=== PATIENT | male | born 1970 | race Caucasian/White ===

== ENCOUNTER 2016-12-10 17:53 | Emergency (ER) | payer OTHER ==
[~2016-12-10] VITALS: Ht 177.8 cm; Wt 70.0 kg
[~2016-12-10 17:53] MED LIST: BUSP5 PO; RISP1 PO; RISP1TAB2 PO; TRAZ100 PO
--- NOTE | 2016-12-10 18:41 | PD ---
HPI Chief Complaint: Perez act Time Seen by Provider: 18:30 Travel History International Travel<30 days: No Contact w/Intl Traveler<30days: No Traveled to known affect area: No History of Present Illness HPI 46-year-old male with history of bipolar disorder, depression, brought in by PD under Perez act for homicidal ideation. According to the Perez act, the patient 's sister reported to PD that he made statements that he wished to kill his boss. When questioned about this, the patient reports that they were out drinking last night. He made statements this morning. Patient admits to drinking about 4 or 5 beers today, and smoking crack yesterday. He denies any other illicit drugs. He denies physical complaints. No suicidal ideation. PFSH Past Medical History Bipolar Disorder: Yes Anxiety: Yes Depression: Yes COPD: Yes Diminished Hearing: No GERD: Yes Hepatitis: Yes (HEP C) Inguinal Hernia: Yes (BILATERAL) Insomnia: Yes Neurologic: Yes (BRAIN INJURY: 1995) Psychiatric: Yes (PTSD) Respiratory: Yes Pneumonia: Yes Past Surgical History Tonsillectomy: Yes Social History Alcohol Use: Yes (3-4 BEERS, DAILY) Tobacco Use: Yes (1 PPD) Substance Use: Yes Allergies-Medications (Allergen,Severity, Reaction): Coded Allergies: No Known Allergies (Unverified , 12/22/15) Reported Meds & Prescriptions Reported Meds & Active Scripts Active Buspar 5 Mg Tab (Buspirone HCl) 5 Mg Tab 5 Mg PO TID 14 Days Trazodone Hcl (Trazodone HCl) 100 Mg Tab 100 Mg PO HS 14 Days Risperdal (Risperidone) 1 Mg Tab 1 Mg PO BID 14 Days Reported Trazodone Hcl (Trazodone HCl) 100 Mg Tab 100 Mg PO HS Risperidone 1 Mg Tab 1 Mg PO BID Buspar 5 Mg Tab (Buspirone HCl) 5 Mg Tab 5 Mg PO TID Review of Systems Except as stated in HPI: all other systems reviewed are Neg Physical Exam Narrative GENERAL: Well-developed, well-nourished, awake, alert, no apparent distress. SKIN: Focused skin assessment warm/dry. No rash. HEAD: Atraumatic. Normocephalic. EYES: Pupils equal and round. No scleral icterus. No injection or drainage. ENT: No nasal bleeding or discharge. Poor dentition. NECK: Trachea midline. No JVD. CARDIOVASCULAR: Regular rate and rhythm. RESPIRATORY: No accessory muscle use. Clear to auscultation. Breath sounds equal bilaterally. GASTROINTESTINAL: Abdomen soft, non-tender, nondistended. MUSCULOSKELETAL: No obvious deformities. No clubbing. No cyanosis. No edema. NEUROLOGICAL: Awake and alert. No obvious cranial nerve deficits. Motor grossly within normal limits. Normal speech. PSYCHIATRIC: Appears angry/agitated when talking about his boss. Data Data Last Documented VS Vital Signs Date Time Temp Pulse Resp B/P Pulse Ox O2 Delivery O2 Flow Rate FiO2 12/11/16 11:38 59 17 128/58 97 Room Air 12/10/16 18:59 98.0 Orders Complete Blood Count With Diff (12/10/16 18:38) Comprehensive Metabolic Panel (12/10/16 18:38) Psych Screen (12/10/16 18:38) [place] (Li) (12/10/16 18:38) Drug Screen, Random Urine (12/10/16 18:38) Alcohol (Ethanol) (12/10/16 18:38) Salicylates (Aspirin) (12/10/16 18:38) Tylenol (Acetaminophen) (12/10/16 18:38) Diet Regular Basic (12/11/16 Breakfast) Labs Laboratory Tests Test 12/10/16 12/10/16 18:45 18:50 Urine Opiates Screen NEG Urine Barbiturates Screen NEG Urine Amphetamines Screen NEG Urine Benzodiazepines Screen NEG Urine Cocaine Screen POS Urine Cannabinoids Screen NEG White Blood Count 10.5 TH/MM3 Red Blood Count 5.29 MIL/MM3 Hemoglobin 16.8 GM/DL Hematocrit 48.0 % Mean Corpuscular Volume 90.7 FL Mean Corpuscular Hemoglobin 31.8 PG Mean Corpuscular Hemoglobin 35.0 % Concent Red Cell Distribution Width 12.8 % Platelet Count 264 TH/MM3 Mean Platelet Volume 7.7 FL Neutrophils (%) (Auto) 55.9 % Lymphocytes (%) (Auto) 31.5 % Monocytes (%) (Auto) 7.9 % Eosinophils (%) (Auto) 3.9 % Basophils (%) (Auto) 0.8 % Neutrophils # (Auto) 5.8 TH/MM3 Lymphocytes # (Auto) 3.3 TH/MM3 Monocytes # (Auto) 0.8 TH/MM3 Eosinophils # (Auto) 0.4 TH/MM3 Basophils # (Auto) 0.1 TH/MM3 CBC Comment DIFF FINAL Differential Comment Sodium Level 140 MEQ/L Potassium Level 3.7 MEQ/L Chloride Level 109 MEQ/L Carbon Dioxide Level 22.9 MEQ/L Anion Gap 8 MEQ/L Blood Urea Nitrogen 10 MG/DL Creatinine 0.94 MG/DL Estimat Glomerular Filtration 86 ML/MIN Rate Random Glucose 80 MG/DL Calcium Level 8.8 MG/DL Total Bilirubin 0.4 MG/DL Aspartate Amino Transf 62 U/L (AST/SGOT) Alanine Aminotransferase 71 U/L (ALT/SGPT) Alkaline Phosphatase 58 U/L Total Protein 7.9 GM/DL Albumin 4.0 GM/DL Salicylates Level 2.8 MG/DL Acetaminophen Level LESS THAN 2.0 MCG/ML [place] Level LESS THAN 0.1 MEQ/L Ethyl Alcohol Level 170 MG/DL [facility] Medical Decision Making Medical Screen Exam Complete: Yes Emergency Medical Condition: Yes Differential Diagnosis Homicidal ideation, bipolar disorder, aggressive behavior Narrative Course Vitals and labs reviewed. He is medically cleared for psych eval and dispo. Peter Mckeon MD Dec 10, 2016 18:41
[2016-12-10 18:59] VITALS: BP 104/61; PULSE 77; RESP 16; TEMP 98; O2SAT 99
[2016-12-10 20:07] LABS: AUTOMATED NEUTROPHIL # 5.8 TH/MM3 (1.8-7.7); BASOPHIL # 0.1 TH/MM3 (0-0.2); BASOPHIL % 0.8 % (0.0-2.0); EOSINOPHIL # 0.4 TH/MM3 (0-0.4); EOSINOPHIL % 3.9 % (0.0-4.0); HEMO FLAGS DIFF FINAL; LYMPH % 31.5 % (9.0-44.0); LYMPHOCYTE # 3.3 TH/MM3 (1.0-4.8); MEAN CELL VOLUME 90.7 FL (80.0-100.0); MEAN CORPUSCULAR HEMOGLOBIN 31.8 PG (27.0-34.0); MONO % 7.9 % (0.0-8.0); NEUT % 55.9 % (16.0-70.0); PLATELET COUNT 264 TH/MM3 (150-450); RED BLOOD COUNT 5.29 MIL/MM3 (4.50-5.90); RED CELL DISTRIBUTION WIDTH 12.8 % (11.6-17.2); WHITE BLOOD COUNT 10.5 TH/MM3 (4.0-11.0)
[2016-12-10 20:10] LABS: AMPHETAMINE, URINE NEG (NEG); BARBITURATES, URINE NEG (NEG); COCAINE, URINE POS (NEG)
[2016-12-10 20:23] LABS: ANION GAP 8 MEQ/L (5-15); AST (GOT) 62 U/L (15-37); BICARBONATE 22.9 MEQ/L (21.0-32.0); BLOOD UREA NITROGEN 10 MG/DL (7-18); CHLORIDE 109 MEQ/L (98-107); GLOMERULAR FILTRATION RATE 86 ML/MIN (>89); POTASSIUM 3.7 MEQ/L (3.5-5.1); SODIUM (NA) 140 MEQ/L (136-145)
[2016-12-10 20:25] LABS: ALT (GPT) 71 U/L (12-78)
[2016-12-10 20:27] LABS: ALKALINE PHOSPHATASE 58 U/L (45-117); TOTAL BILIRUBIN ADULT 0.4 MG/DL (0.2-1.0)
[2016-12-10 20:29] LABS: ACETAMINOPHEN LESS THAN 2.0 MCG/ML (10.0-30.0)
[2016-12-10 21:29] VITALS: BP 103/62; PULSE 103; RESP 18; O2SAT 98
[2016-12-11 02:28] VITALS: BP 107/61; PULSE 84; RESP 18; O2SAT 96
[2016-12-11 06:06] VITALS: BP 128/58; PULSE 59; RESP 17; O2SAT 97
--- NOTE | 2016-12-11 11:26 | PD ---
History of Present Illness Chief Complaint: Psychiatric Symptoms Time Seen by Provider: 11:05 Travel History International Travel<30 Days: No Contact w/Intl Traveler<30days: No Known affected area: No Legal Status Legal Status: Perez Act Perez Act Signed By: Vivek Christianson Perez Act Comment: 12/10/2016 1719 PM History of Present Illness: History of Present Illness HPI 46-year-old male with history of bipolar disorder, substance use disorder brought in by under Perez act. According to the Perez act, " Avila was intoxicated. Avila advised his boss has been disrespecting him while at work and stated he wished to kill him therefore the patient's sister reported to . Patient was monitored in [facility] and he presented no behavioral concerns and no suicidality. His BAL on presentation was 170 and his toxicology is positive for cocaine. This morning the patient is clinically sober. He is seen with KAI Salas. he is alert and oriented. Speech is clear and logical. There is no psychosis and no yohana or hypomania. no depression. The patient relates that he does not like his boss because he alleges that his boss calls him names and is " an asshole". He is denying intent to kill him and states " I was just stressed. I 'm not going to hurt him. I'm only working 2 more weeks for him and then I am getting another job. I know if I hurt him I go to group home and I don't want that". Reports medication compliance [facility] Past Medical History Bipolar Disorder: Yes Anxiety: Yes Depression: Yes COPD: Yes Diminished Hearing: No GERD: Yes Hepatitis: Yes (HEP C) Inguinal Hernia: Yes (BILATERAL) Insomnia: Yes Neurologic: Yes (BRAIN INJURY: 1995) Psychiatric: Yes (PTSD) Respiratory: Yes Pneumonia: Yes Tetanus Vaccination: Unknown Past Surgical History Tonsillectomy: Yes Psychiatric History Psychiatric History Hx Psychiatric Treatment: Patient with history of bipolar d/o, anxiety d/o and depression. Last [facility] visit December 22, 2015 for substance induced mood disorder. Last outpatient visit to [facility] December 10, 2016. Patient remains compliant with medication regimen. History of Inpatient Treatment: Yes Guns or firearms in home: No Social History Single male. Lives by himself. works in construction work. Hx Alcohol Use: Yes (3-4 BEERS, DAILY) Hx Tobacco Use: Yes (1 PPD) Hx Substance Use: Yes Substance Use Type: Alcohol, Crack, Marijuana, Nicotine/Cigarettes, Prescription Medications, Synth Opiates-Pain Pills Hx of Substance Use Treatment: Yes Family Psychiatric History Negative Allergies-Medications (Allergen,Severity, Reaction): Coded Allergies: No Known Allergies (Unverified , 12/22/15) Reported Meds & Prescriptions Reported Meds & Active Scripts Active Buspar 5 Mg Tab (Buspirone HCl) 5 Mg Tab 5 Mg PO TID 14 Days Trazodone Hcl (Trazodone HCl) 100 Mg Tab 100 Mg PO HS 14 Days Risperdal (Risperidone) 1 Mg Tab 1 Mg PO BID 14 Days Reported Trazodone Hcl (Trazodone HCl) 100 Mg Tab 100 Mg PO HS Risperidone 1 Mg Tab 1 Mg PO BID Buspar 5 Mg Tab (Buspirone HCl) 5 Mg Tab 5 Mg PO TID Review of Systems Except as stated in HPI: all other systems reviewed are Neg Exam Alert: Yes [place]: Person (ox4) Mood: Calm Affect: Appropriate Speech: Clear, Logical Eye Contact: Normal Memory Intact: Comment (no impairmetn) Hallucinations: Other (negative) Delusions: No Suicidal: Ideation (negative) Homicidal: Ideation (negative) Insight/Judgement Fair. Fair. [facility] Medical Decision Making Assessment/Plan 46 year old male with hx of Bipolar Disorder as well as substance use who presents as a BA for making threats to harm his boss while intoxicated. At this time the patient is sober and denies any intent tin of harming his boss. he is future oriented and plans on leaving his reported stressful job. Lift BA. I have counseled him re use of substances. Orders Complete Blood Count With Diff (12/10/16 18:38) Comprehensive Metabolic Panel (12/10/16 18:38) Psych Screen (12/10/16 18:38) [place] (Li) (12/10/16 18:38) Drug Screen, Random Urine (12/10/16 18:38) Alcohol (Ethanol) (12/10/16 18:38) Salicylates (Aspirin) (12/10/16 18:38) Tylenol (Acetaminophen) (12/10/16 18:38) Diet Regular Basic (12/11/16 Breakfast) Results Vital Signs Date Time Temp Pulse Resp B/P Pulse Ox O2 Delivery O2 Flow Rate FiO2 12/11/16 06:06 59 17 128/58 97 Room Air 12/11/16 02:28 84 18 107/61 96 Room Air 12/10/16 21:29 103 18 103/62 98 Room Air 12/10/16 19:02 77 16 12/10/16 18:59 98.0 77 16 104/61 99 Laboratory Tests Test 12/10/16 12/10/16 18:45 18:50 Urine Opiates Screen NEG Urine Barbiturates Screen NEG Urine Amphetamines Screen NEG Urine Benzodiazepines Screen NEG Urine Cocaine Screen POS Urine Cannabinoids Screen NEG White Blood Count 10.5 Red Blood Count 5.29 Hemoglobin 16.8 Hematocrit 48.0 Mean Corpuscular Volume 90.7 Mean Corpuscular Hemoglobin 31.8 Mean Corpuscular Hemoglobin 35.0 Concent Red Cell Distribution Width 12.8 Platelet Count 264 Mean Platelet Volume 7.7 Neutrophils (%) (Auto) 55.9 Lymphocytes (%) (Auto) 31.5 Monocytes (%) (Auto) 7.9 Eosinophils (%) (Auto) 3.9 Basophils (%) (Auto) 0.8 Neutrophils # (Auto) 5.8 Lymphocytes # (Auto) 3.3 Monocytes # (Auto) 0.8 Eosinophils # (Auto) 0.4 Basophils # (Auto) 0.1 CBC Comment DIFF FINAL Differential Comment Sodium Level 140 Potassium Level 3.7 Chloride Level 109 Carbon Dioxide Level 22.9 Anion Gap 8 Blood Urea Nitrogen 10 Creatinine 0.94 Estimat Glomerular Filtration 86 Rate Random Glucose 80 Calcium Level 8.8 Total Bilirubin 0.4 Aspartate Amino Transf 62 (AST/SGOT) Alanine Aminotransferase 71 (ALT/SGPT) Alkaline Phosphatase 58 Total Protein 7.9 Albumin 4.0 Salicylates Level 2.8 Acetaminophen Level LESS THAN 2.0 [place] Level LESS THAN 0.1 Ethyl Alcohol Level 170 Diagnosis Primary Impression: Substance induced mood disorder Additional Impression: Cocaine abuse Psychiatrically Cleared: Yes Med/ Other Pt Specific Info: No Change to Meds Disposition: 01 DISCHARGE HOME Condition: Stable Problem Qualifiers Jo-Ann Bill Dec 11, 2016 11:26
[2016-12-11 11:38] VITALS: BP 128/58; PULSE 59; RESP 17; O2SAT 97
== END 2016-12-11 12:03 | disposition home or self-care (01) ==
LOC: NEPD 17:53 → NEPJ 12-11 12:03
DX: F39 Unspecified mood [affective] disorder (principal); F14.10 Cocaine abuse, uncomplicated; F31.9 Bipolar disorder, unspecified; J44.9 Chronic obstructive pulmonary disease, unspecified; K21.9 Gastro-esophageal reflux disease without esophagitis; F43.10 Post-traumatic stress disorder, unspecified; F17.200 Nicotine dependence, unspecified, uncomplicated; Z79.899 Other long term (current) drug therapy
CPT/HCPCS: 80053; 80178; 80307; 85025; 99283

== ENCOUNTER 2017-01-10 13:07 | Emergency (ER) | payer SELFPAY ==
[~2017-01-10] VITALS: Ht 177.8 cm; Wt 75.0 kg
[2017-01-10 13:09] VITALS: BP 127/83; PULSE 84; RESP 24; TEMP 99; O2SAT 97
[2017-01-10] MEDS ORDERED: TRAZ1TAB45 PO (13:10)
[2017-01-10] MEDS ORDERED: BUSP5TAB PO (13:10)
[2017-01-10] MEDS ORDERED: LITH300C2 PO (13:10)
--- NOTE | 2017-01-10 13:44 | RADRPT ---
EXAM DATE/TIME: 01/10/2017 13:30 [facility] COMPARISON: No previous studies available for comparison. INDICATIONS : Right ankle pain and swelling post fall MEDICAL HISTORY : None. SURGICAL HISTORY : None. ENCOUNTER: Initial ACUITY: 1 day PAIN SCORE: 8/10 LOCATION: Right ankle FINDINGS: Three view exam was performed of the right ankle. The bony structures are in normal alignment. Soft tissue swelling is identified along the medial hindfoot. There is no evidence of fracture or dislocat ion. The ankle mortise is intact. No radiopaque foreign bodies are seen. Bony mineralization is nor mal. CONCLUSION: Soft tissue swelling without evidence of acute fracture or dislocation. Juan F Jimenez MD on January 10, 2017 at 13:41 Board Certified Radiologist. This report was verified electronically.
--- NOTE | 2017-01-10 13:52 | RADRPT ---
EXAM DATE/TIME: 01/10/2017 13:27 [facility] COMPARISON: No previous studies available for comparison. INDICATIONS : Left wrist pain post fall MEDICAL HISTORY : None. SURGICAL HISTORY : None. ENCOUNTER: Initial ACUITY: 1 day PAIN SCORE: 10/10 LOCATION: Left Wrist FINDINGS: Three view examination of the left wrist demonstrates fractures of the distal radius and ulna. There is a mildly impacted, comminuted fracture of the distal radius extending into the radiocarpal j oint. Small avulsion fracture of the ulnar styloid is noted. CONCLUSION: Fracture distal left radius and ulna. Juan F Jimenez MD on January 10, 2017 at 13:50 Board Certified Radiologist. This report was verified electronically.
--- NOTE | 2017-01-10 14:16 | PD ---
HPI Chief Complaint: Injury Time Seen by Provider: 14:16 Travel History International Travel<30 days: No Contact w/Intl Traveler<30days: No Traveled to known affect area: No History of Present Illness HPI 46-year-old male presents to the emergency Department with complaint of left wrist pain and right ankle pain after tripping in a pothole in his yard yesterday and falling. He denies hitting his head or loss of consciousness. Denies neck pain or back pain. Has been a visitor in the affected ankle. Denies paresthesias, loss of sensation to the affected extremities. Reports decreased range of motion to the left wrist. Denies fever, vomiting. Has not taken any medications or tried any treatments to alleviate his symptoms. Denies anticoagulants. Symptoms are moderate in severity. Denies allergies. Does not have an established primary care provider. PFSH Past Medical History Bipolar Disorder: Yes Anxiety: Yes Depression: Yes COPD: Yes Diminished Hearing: No Gastrointestinal Disorders: Yes GERD: Yes Hepatitis: Yes (HEP C) Inguinal Hernia: Yes (BILATERAL) Insomnia: Yes Neurologic: Yes (BRAIN INJURY: 1994) Psychiatric: Yes (PTSD) Respiratory: Yes Pneumonia: Yes Tetanus Vaccination: Unknown Past Surgical History Tonsillectomy: Yes Social History Alcohol Use: Yes (3-4 BEERS, DAILY) Tobacco Use: Yes (1 PPD) Substance Use: Yes (marijuana) Allergies-Medications (Allergen,Severity, Reaction): Coded Allergies: No Known Allergies (Unverified , 01/10/17) Reported Meds & Prescriptions Reported Meds & Active Scripts Active Reported Trazodone (Trazodone HCl) 150 Mg Tablet 200 Mg PO HS Buspirone (Buspirone HCl) 5 Mg Tab 5 Mg PO BID [place] Carbonate 300 Mg Cap 300 Mg PO DAILY Review of Systems Except as stated in HPI: all other systems reviewed are Neg Physical Exam Narrative GENERAL: Well-nourished, well-developed male patient, in no acute distress SKIN: Warm and dry. HEAD: Atraumatic. Normocephalic. EYES: Pupils equal and round. No scleral icterus. No injection or drainage. ENT: Mucosa pink and moist. Airway patent. NECK: Trachea midline. CARDIOVASCULAR: Regular rate. RESPIRATORY: No accessory muscle use. GASTROINTESTINAL: Flat. MUSCULOSKELETAL: Left wrist with tenderness on palpation; no erythema ; mild edema; unable to assess range of motion. Left hand with full range of motion at all finger joints. Left upper extremity is supple and non-tense with 2+ radial pulse and sensory intact. Right ankle is mildly edematous without erythema or edema; point tenderness on palpation to the lateral and medial malleolar zone's; no obvious deformity. Right lower extremity is supple and non -tense with 2+ pedal pulses sensory intact. No obvious deformities. No clubbing. No cyanosis. NEUROLOGICAL: Awake and alert. Oriented 3. No obvious cranial nerve deficits. Motor grossly within normal limits. Normal speech. PSYCHIATRIC: Appropriate mood and affect; insight and judgment normal. Data Data Last Documented VS Vital Signs Date Time Temp Pulse Resp B/P Pulse Ox O2 Delivery O2 Flow Rate FiO2 01/10/17 13:17 19 Room Air 01/10/17 13:09 99.0 84 127/83 97 Orders Ankle, Complete ([id number]) (01/10/17 13:18) Wrist, Complete ([id number]) (01/10/17 13:18) Acetamin-Hydrocod 325-5 Mg ([place] 5-325 (01/10/17 14:45) Splint Or Brace Apply/Monitor (01/10/17 14:40) Sling Cradle Arm (01/10/17 ) Splint Or Brace Apply/Monitor (01/10/17 14:40) Crutches (01/10/17 14:40) MDM Medical Decision Making Medical Screen Exam Complete: Yes Emergency Medical Condition: Yes Medical Record Reviewed: Yes Differential Diagnosis Fall, wrist fracture, ankle fracture, ankle sprain, wrist sprain Narrative Course 38-year-old male with left wrist and right ankle injuries after mechanical fall yesterday. Denies hitting her head or loss of consciousness. Denies neck pain or back pain. Left wrist and right ankle x-ray ordered. 1418: Left wrist x-ray concludes: Three view examination of the left wrist demonstrates fractures of the distal radius and ulna. There is a mildly impacted, comminuted fracture of the distal radius extending into the radiocarpal joint. Small avulsion fracture of the ulnar styloid is noted. Call placed to orthopedics surgeon. 1434: I spoke with Dr. Che, orthopedic surgeon, and he recommends to place the patient in a sugar tong splint and follow up outpatient. Splint ordered and applied in the ER. [place] administered in the ER. Lortab prescribed for home. Patient instructed to follow-up with Dr. Che or orthopedic surgeon of choice. Instructed patient to follow up with primary care provider. Patient verbalizes understanding and agreement with treatment plan. Patient is medically cleared and stable for discharge. Discussed reasons to return to the emergency department. Patient agrees with treatment plan. The patients vital signs are stable and the patient is stable for outpatient follow-up and treatment. Patient discharged home, stable and in no acute distress. Diagnosis Primary Impression: Left wrist fracture Qualified Code: S62.102A - Closed fracture of left wrist, initial encounter Additional Impression: Right ankle injury Qualified Code: S99.911A - Injury of right ankle, initial encounter Referrals: Avery Lux MD [facility] [address] Orthopaedic Surgeon Primary Care Physician Patient Instructions: Ankle Sprain (ED), Crutch Instructions (ED), General Instructions, Splint Care (ED), Wrist Fracture in Adults (ED) Additional Instructions: Tylenol or ibuprofen as directed and as needed for pain and inflammation Rest, ice, compress, and elevate extremity to decrease pain and inflammation Ankle Brace for support Do not remove the wrist splint until you follow up with orthopedic, Dr. Lux Crutches for support Avoid aggravating activity; increase activity as tolerated Follow-up with primary care provider Follow-up with Dr. Lux, orthopedic; a mandatory outpatient referral has been placed for a follow-up outpatient Return to the emergency department immediately with worsening of symptoms Med/Other Pt SpecificInfo: Prescription(s) given Scripts Ibuprofen 800 Mg [id number] Mg PO Q6HR PRN (PAIN LESS THAN 5 ON SCALE) #30 TAB Ref 0 Prov:Pam Pedroza 01/10/17 Hydrocodone-Acetaminophen (Lortab)5-325 Mg Tab1 Tab PO Q4-6H PRN (PAIN GREATER THAN 5) #20 TAB Ref 0 Prov:Marissa Sanchez MD 01/10/17 Disposition: 01 DISCHARGE HOME Condition: Stable Pam Pedroza Jan 10, 2017 14:16
[2017-01-10] MEDS ORDERED: ACETAMINOPHEN/HYDROcodone 325 MG/5 MG TAB PO ONE (14:45)
[2017-01-10] MEDS ORDERED: HYDR-3533 PO (14:45)
[2017-01-10] MEDS ORDERED: IBUP800T23 PO (14:48)
== END 2017-01-10 15:52 | disposition home or self-care (01) ==
LOC: NEPD 13:07
DX: S52.612A Displaced fracture of left ulna styloid process, initial encounter for closed fracture (principal); S99.911A Unspecified injury of right ankle, initial encounter; F17.200 Nicotine dependence, unspecified, uncomplicated; F31.9 Bipolar disorder, unspecified; F41.9 Anxiety disorder, unspecified; J44.9 Chronic obstructive pulmonary disease, unspecified; K21.9 Gastro-esophageal reflux disease without esophagitis; B19.20 Unspecified viral hepatitis C without hepatic coma; W01.0XXA Fall on same level from slipping, tripping and stumbling without subsequent striking against object, initial encounter
CPT/HCPCS: 29125; 29540; 73110; 73610; 99284; E0113; L1906

== ENCOUNTER 2017-01-16 17:06 | Emergency (ER) | payer SELFPAY ==
[~2017-01-16] VITALS: Ht 177.8 cm; Wt 72.7 kg
[~2017-01-16 17:06] MED LIST changes: -BUSP5 PO; +BUSP5TAB PO; +HYDR-3533 PO; +IBUP800T23 PO; +LITH300C2 PO; -RISP1 PO; -RISP1TAB2 PO; -TRAZ100 PO; +TRAZ1TAB45 PO
[2017-01-16 17:09] VITALS: BP 133/83; PULSE 74; RESP 15; TEMP 98.4; O2SAT 98
--- NOTE | 2017-01-16 17:45 | PD ---
HPI Chief Complaint: Injury Time Seen by Provider: 17:37 Travel History International Travel<30 days: No Contact w/Intl Traveler<30days: No Traveled to known affect area: No History of Present Illness HPI 38-year-old male presents emergency department requesting a splinter be cut out of the bottom of his foot. He said he was walking on his porch and got a splinter in the bottom of his foot and it is causing him pain. He is trying removing it himself with no success. Symptoms are mild in severity. Has no other medical complaints. No other modifying factors or associated signs and symptoms. History Social History Alcohol Use: Yes (3-4 BEERS, DAILY) Tobacco Use: Yes (1 PPD) Allergies-Medications (Allergen,Severity, Reaction): Coded Allergies: No Known Allergies (Unverified , 01/16/17) Reported Meds & Prescriptions Reported Meds & Active Scripts Active Ibuprofen 800 Mg Tab 800 Mg PO Q6HR PRN Lortab (Hydrocodone-Acetaminophen) 5-325 Mg Tab 1 Tab PO Q4-6H PRN Reported Trazodone (Trazodone HCl) 150 Mg Tablet 200 Mg PO HS Buspirone (Buspirone HCl) 5 Mg Tab 5 Mg PO BID [place] Carbonate 300 Mg Cap 300 Mg PO DAILY Review of Systems Except as stated in HPI: all other systems reviewed are Neg Physical Exam Narrative GENERAL: Well-nourished, well-developed male patient, in no acute distress SKIN: Warm and dry. Small pinpoint, black dot noted to the bottom of the foot just below the fourth toe to the metatarsal area; dispensers not on the surface of the skin; there is no surrounding erythema, edema, drainage. HEAD: Atraumatic. Normocephalic. EYES: Pupils equal and round. No scleral icterus. No injection or drainage. ENT: Mucosa pink and moist. Airway patent. NECK: Trachea midline. CARDIOVASCULAR: Regular rate. RESPIRATORY: No accessory muscle use. GASTROINTESTINAL: Flat. MUSCULOSKELETAL: No obvious deformities. No clubbing. No cyanosis. No edema. NEUROLOGICAL: Awake and alert. Oriented 3. No obvious cranial nerve deficits. Motor grossly within normal limits. Normal speech. PSYCHIATRIC: Appropriate mood and affect; insight and judgment normal. Data Data Last Documented VS Vital Signs Date Time Temp Pulse Resp B/P Pulse Ox O2 Delivery O2 Flow Rate FiO2 01/16/17 17:09 98.4 74 15 133/83 98 [facility] Medical Screen Exam Complete: Yes Emergency Medical Condition: No Differential Diagnosis Splinter, wound infection, medical clearance Narrative Course 46-year-old male with a possible splinter in the bottom of his right foot. He is requesting it be incised and removed. There is a small, pinpoint black spot noted to the area of concern. It is not superficial and it would need to be incised to be removed. There are no signs of infection to the area. I instructed the patient to follow up with podiatry if he wanted the splinter incised and removed. Patient became agitated and started cussing. Vital signs are stable and the patient is stable for outpatient follow-up and treatment. The patient has no urgent or emergent medical complaints. There is no emergent or urgent medical need at this time. I instructed the patient to follow up with their primary care provider. A medical screening exam was performed: At the time of evaluation the presenting medical condition was determined not to be of an emergent nature. The patient was given the option of receiving additional care, but declined. Patient was given options for additional community resources from which to obtain care. The Patient Has Been advised to seek medical attention for their presenting complaint. The patient has been advised to return to the ER at any time if an emergent condition develops. Primary Impression: Encounter for medical screening examination Condition: Stable Pam Pedroza Jan 16, 2017 17:45
== END 2017-01-16 18:42 | disposition left against medical advice (07) ==
LOC: NEPK 17:06
DX: S90.851A Superficial foreign body, right foot, initial encounter (principal); W45.8XXA Other foreign body or object entering through skin, initial encounter
CPT/HCPCS: 99281

== ENCOUNTER → 2017-01-21 | Day surgery (SDC) | payer SELFPAY ==
[~2017-01-21] VITALS: Ht 177.8 cm; Wt 72.7 kg
[~2017-01-21] MED LIST changes: +*morphine SULFATE 8 MG/ML PERIprocedure ONLY ONE; +ACETAMINOPHEN 1000 MG/100 ML 100 ML IV ONE; +ACETAMINOPHEN/HYDROcodone 325 MG/7.5 MG TAB PO PRN; +BUPIVACAINE/EPINEPHRINE 0.25% 50 ML VIAL ONE; +CHLORHEXIDINE GLUCONATE 2 % 1 PACK (2 CLOTHS) TOPICAL PRN; +CHLORHEXIDINE GLUCONATE 4% SOLN 120 ML BTL TOPICAL SCH; +DEXAMETHASONE SOD PHOS 4 MG/ML VIAL ONE; +DO NOT ADM ANY ANTICOAGULANT DRUGS PRN; +FAMOTIDINE 20 MG/2 ML VIAL ONE; +INSULIN HUMAN REGULAR 1,000 UNITS/10 ML VIAL SQ PRN; +LACTATED RINGER'S 1000 ML INJ 1,000 ML IV ONE; +METOPROLOL TARTRATE 25 MG TAB PO PRN; +MIDAZOLAM HCL 2 MG/2 ML VIAL ONE; +MORPHINE SULFATE 4 MG/ML INJ IV PUSH PRN; +MORPHINE SULFATE 8 MG/ML INJ IV PUSH PRN; +NEOMYCIN/POLYMYXIN 1 ML G.U. IRRIGANT IRRIGATION ONE; +NEOSTIGMINE 3 MG/3 ML SYR IV ONE; +ONDANSETRON HCL 4 MG/2 ML VIAL IV PUSH ONE; +POVIDONE IODINE 5% (ANTISEPSIS KIT) 4 APPLICATIONS EACH NARE PRN; +POVIDONE IODINE 7.5% SCRUB 118 ML BOTTLE TOPICAL SCH; +PROPOFOL 200 MG/20 ML AMP IV ONE; +SODIUM CHLORID 0.9% 500 ML IV PRN; +SODIUM CHLORIDE 0.9% FLUSH 10 ML FLUSH IV FLUSH PRN; +SODIUM CHLORIDE 0.9% FLUSH 10 ML FLUSH IV FLUSH SCH; +ceFAZolin 2 GM PREMIX 50 ML IV SCH; +ePHEDrine/NS 25 MG/5 ML SYR IV ONE; +fentaNYL CITRATE 250 MCG/5 ML AMP ONE
[2017-01-21] MEDS: LACTATED RINGER'S 1000 ML IV PRN (07:45)
[2017-01-21] MEDS: VANCOMYCIN 1000 MG/NS 250 ML (for <70 kg) IV SCH ×2 (08:37)
--- NOTE | 2017-01-21 11:15 | PD.OP ---
Operative Report Date of Surgery: Jan 21, 2017 Preoperative Diagnosis: Left distal radius fracture intra-articular three-part. History of prior wrist fracture. Postoperative Diagnosis: Same Procedure: Left distal radius fracture open reduction internal fixation of three-part intra -articular fracture. Anesthesia: Gen. Surgeon: Avery Lux Lime Mixer Tender(s): SANDRA Smart The surgical procedure was assisted by my Advanced Registered Nurse Practitioner. My FRAMING MACHINE TENDER presence was necessary throughout this case for the manipulation and positioning of the surgical extremity. My FRAMING MACHINE TENDER was assisting me throughout the duration of this procedure. The skill set of an Advance Registered Nurse Practitioner was medically necessary to complete this procedure. During the surgical case, the chemical engineering technician was working at the back table and the Advance Registered Nurse Practitioner was directly assisting me. Operation and Findings: Tourniquet time: 29 minutes at 250 mmHg of pressure Estimated blood loss: 10 cc The patient received intravenous, vancomycin and Ancef. After the appropriate anesthesia was administered, the patient's arm was prepped and draped in the usual sterile fashion. Local anesthetic was given, and the arm was exsanguinated. The tourniquet was raised to 250 mmHg of pressure. We made a standard incision over the volar aspect of the forearm. We then dissected through the flexor carpi radialis sub- sheath. The pronator quadratus was reflected. We now visualized the distal radius fracture very well. The fracture was anatomically reduced both visually and via fluoroscopy. We provisionally held the fracture reduced and then applied a Synthes precontoured distal radius plate into the appropriate position. The plate was secured to the distal radius first with the sliding screw hole. This was then followed by locking screws distally and proximally. We took final fluoroscopic imaging of the wrist. We found no intra-articular penetration of the screws. The patient had full range of motion of the wrist with no crepitus. The tourniquet was released and hemostasis was achieved. The patient had a 2+ radial pulse. We irrigated the incision thoroughly. We then closed skin with 2 -0 Vicryl followed by 3-0 nylon. The arm was dressed and a volar splint was applied. The postoperative plan is to start early range of motion of the wrist. Avery Lux MD Jan 21, 2017 11:15
[2017-01-21 12:50] VITALS: BP 139/74; PULSE 63; RESP 18; TEMP 98; O2SAT 99
--- NOTE | 2017-01-21 14:14 | RADRPT ---
EXAM DATE/TIME: 01/21/2017 10:57 [facility] COMPARISON: WRIST LEFT COMPLETE ([id number]), January 10, 2017, 13:27. INDICATIONS : Left distal radius fracture repair. OR. MEDICAL HISTORY : None. SURGICAL HISTORY : Left hip fracture repair. ENCOUNTER: Initial ACUITY: 1 day PAIN SCORE: Non-responsive. LOCATION: Left wrist FINDINGS: 2 spot intraoperative fluoroscopic views of the left wrist demonstrate volar plate and screw fixation of distal radial metaphyseal fracture. An ulnar styloid process fracture is also noted. There is exc ellent alignment. CONCLUSION: Postoperative changes. Mike Garcia MD on January 21, 2017 at 14:12 Board Certified Radiologist. This report was verified electronically.
== END | disposition home or self-care (01) ==
LOC: HSDC 06:52
PROVIDERS: ATTEND Orthopaedic Surgery
DX: S52.572A Other intraarticular fracture of lower end of left radius, initial encounter for closed fracture (principal); W01.0XXA Fall on same level from slipping, tripping and stumbling without subsequent striking against object, initial encounter; Y92.096 Garden or yard of other non-institutional residence as the place of occurrence of the external cause; J44.9 Chronic obstructive pulmonary disease, unspecified; F17.210 Nicotine dependence, cigarettes, uncomplicated; K21.9 Gastro-esophageal reflux disease without esophagitis
CPT/HCPCS: 01830; 25609; 73100; 76000; C1713; J0131; J0690; J1100; J2250; J2270; J2405; J2710; J3010; J3370; J7050; J7120

== ENCOUNTER 2017-08-27 14:08 | Emergency (ER) | payer SELFPAY ==
[~2017-08-27] VITALS: Ht 177.8 cm; Wt 70.0 kg
[~2017-08-27 14:08] MED LIST changes: -*morphine SULFATE 8 MG/ML PERIprocedure ONLY ONE; -ACETAMINOPHEN 1000 MG/100 ML 100 ML IV ONE; -ACETAMINOPHEN/HYDROcodone 325 MG/7.5 MG TAB PO PRN; -BUPIVACAINE/EPINEPHRINE 0.25% 50 ML VIAL ONE; -CHLORHEXIDINE GLUCONATE 2 % 1 PACK (2 CLOTHS) TOPICAL PRN; -CHLORHEXIDINE GLUCONATE 4% SOLN 120 ML BTL TOPICAL SCH; -DEXAMETHASONE SOD PHOS 4 MG/ML VIAL ONE; -DO NOT ADM ANY ANTICOAGULANT DRUGS PRN; -FAMOTIDINE 20 MG/2 ML VIAL ONE; +IBUP1TAB7 PO; -IBUP800T23 PO; -INSULIN HUMAN REGULAR 1,000 UNITS/10 ML VIAL SQ PRN; -LACTATED RINGER'S 1000 ML INJ 1,000 ML IV ONE; -METOPROLOL TARTRATE 25 MG TAB PO PRN; -MIDAZOLAM HCL 2 MG/2 ML VIAL ONE; -MORPHINE SULFATE 4 MG/ML INJ IV PUSH PRN; -MORPHINE SULFATE 8 MG/ML INJ IV PUSH PRN; -NEOMYCIN/POLYMYXIN 1 ML G.U. IRRIGANT IRRIGATION ONE; -NEOSTIGMINE 3 MG/3 ML SYR IV ONE; -ONDANSETRON HCL 4 MG/2 ML VIAL IV PUSH ONE; -POVIDONE IODINE 5% (ANTISEPSIS KIT) 4 APPLICATIONS EACH NARE PRN; -POVIDONE IODINE 7.5% SCRUB 118 ML BOTTLE TOPICAL SCH; -PROPOFOL 200 MG/20 ML AMP IV ONE; -SODIUM CHLORID 0.9% 500 ML IV PRN; -SODIUM CHLORIDE 0.9% FLUSH 10 ML FLUSH IV FLUSH PRN; -SODIUM CHLORIDE 0.9% FLUSH 10 ML FLUSH IV FLUSH SCH; +TRAZ1TAB14 PO; -TRAZ1TAB45 PO; -ceFAZolin 2 GM PREMIX 50 ML IV SCH; -ePHEDrine/NS 25 MG/5 ML SYR IV ONE; -fentaNYL CITRATE 250 MCG/5 ML AMP ONE
[2017-08-27 14:27] VITALS: BP 100/62; PULSE 84; RESP 18; TEMP 98.1; O2SAT 99
--- NOTE | 2017-08-27 16:08 | RADRPT ---
EXAM DATE/TIME: 08/27/2017 15:58 [facility] COMPARISON: No previous studies available for comparison. INDICATIONS : Was hit on back of head with metal object at work. RADIATION DOSE: 34.98 CTDIvol (mGy) MEDICAL HISTORY : Chronic obstructive pulmonary disease. Hepatitis C. Brain injury 1994 SURGICAL HISTORY : None. ENCOUNTER: Initial ACUITY: 1 day PAIN SCALE: 8/10 LOCATION: Bilateral cranial TECHNIQUE: Multiple contiguous axial images were obtained of the head. Using automated exposure control and adj ustment of the mA and/or kV according to patient size, radiation dose was kept as low as reasonably a chievable to obtain optimal diagnostic quality images. DICOM format image data is available electro nically for review and comparison. FINDINGS: CEREBRUM: The ventricles are normal for age. No evidence of midline shift, mass lesion, hemorrhage or acute in farction. No extra-axial fluid collections are seen. POSTERIOR FOSSA: The cerebellum and brainstem are intact. The 4th ventricle is midline. The cerebellopontine angle i s unremarkable. EXTRACRANIAL: The visualized portion of the orbits is intact. SKULL: The calvaria is intact. No evidence of skull fracture. CONCLUSION: Normal examination for a patient of this age. Luis Eduardo Cheung MD on August 27, 2017 at 16:05 Board Certified Radiologist. This report was verified electronically.
[2017-08-27] MEDS ORDERED: IBUP1TAB7 PO (16:36)
--- NOTE | 2017-08-27 16:36 | PD ---
HPI Chief Complaint: Injury Time Seen by Provider: 16:26 Travel History International Travel<30 days: No Contact w/Intl Traveler<30days: No Traveled to known affect area: No History of Present Illness HPI 46-year-old male presents to the emergency department with complaint of a headache after being hit in the back of the head with a piece of metal magda while at work today at approximately 1 PM. Says he got dizzy and saw stars. Denies loss of consciousness. Reports still feeling "a little dizzy." Denies vomiting. Denies change in mentation, confusion, disorientation, slurred speech , focal deficits or weakness. Denies change in vision. Rates headache 5/10. Describes it as throbbing. Has tried taking aspirin for symptom management with no relief. No known aggravating factors. No primary care provider. No known allergies. History of COPD. Has no other medical complaints. No other modifying factors or associated signs and symptoms. PFSH Past Medical History Bipolar Disorder: Yes Anxiety: Yes Depression: Yes Cancer: No Cardiovascular Problems: No COPD: Yes Diabetes: No Diminished Hearing: No Endocrine: No Gastrointestinal Disorders: Yes GERD: Yes Genitourinary: No Hepatitis: Yes (HEP C) Hiatal Hernia: No Immune Disorder: No Inguinal Hernia: Yes (BILATERAL) Insomnia: Yes Musculoskeletal: Yes Neurologic: Yes (BRAIN INJURY: 1995) Psychiatric: Yes (PTSD, ANXIETY, DEPRESSION, BIPOLAR) Reproductive: No Respiratory: Yes (COPD) Pneumonia: Yes Thyroid Disease: No ?: Not Past Surgical History AICD: No Body Medical Devices: PINS LEFT HIP Cardiac Surgery: No Ear Surgery: No Endocrine Surgery: No Eye Surgery: No Genitourinary Surgery: No Joint Replacement: No Oral Surgery: No Pacemaker: No Thoracic Surgery: No Tonsillectomy: Yes Social History Alcohol Use: Yes (3-4 BEERS, DAILY) Tobacco Use: Yes (1 PPD) Substance Use: Yes (marijuana) Allergies-Medications (Allergen,Severity, Reaction): Coded Allergies: No Known Allergies (Unverified , 01/21/17) Reported Meds & Prescriptions Reported Meds & Active Scripts Active Ibuprofen 800 Mg Tab 800 Mg PO Q6HR PRN Ibuprofen 800 Mg Tab 800 Mg PO Q6HR PRN Lortab (Hydrocodone-Acetaminophen) 5-325 Mg Tab 1 Tab PO Q4-6H PRN Reported Trazodone (Trazodone HCl) 150 Mg Tablet 200 Mg PO HS Buspirone (Buspirone HCl) 5 Mg Tab 5 Mg PO BID [place] Carbonate 300 Mg Cap 300 Mg PO DAILY Review of Systems Except as stated in HPI: all other systems reviewed are Neg Physical Exam Narrative GENERAL: Well-nourished, well-developed male patient, in no acute distress SKIN: Warm and dry. Small abrasion type wound to the posterior scalp; without drainage; minimal edema to the area; with tenderness to palpation; without crepitus. HEAD: Atraumatic. Normocephalic. No facial droop noted. Tongue midline. Shoulder shrug equal. Finger to nose test normal. EYES: Pupils equal and round at 3 mm with brisk reaction. No scleral icterus. No injection or drainage. PERRLA. EOMI. ENT: Mucosa pink and moist. Airway patent. NECK: Trachea midline. No lymphadenopathy. CARDIOVASCULAR: Regular rate. RESPIRATORY: No accessory muscle use. GASTROINTESTINAL: Flat. MUSCULOSKELETAL: No obvious deformities. No clubbing. No cyanosis. No edema. NEUROLOGICAL: Awake and alert. Oriented 4. No obvious cranial nerve deficits. Motor grossly within normal limits. Normal speech. No ataxia. No mid -line drift. No upper or lower extremity drift. Acid Conditioner strength equal bilaterally. Sensory intact and equal bilaterally. Moves all extremities. Active plantar and dorsiflexion and strength equal bilaterally. 5/5 strength to all extremities. PSYCHIATRIC: Appropriate mood and affect; insight and judgment normal. Data Data Last Documented VS Vital Signs Date Time Temp Pulse Resp B/P (MAP) Pulse Ox O2 Delivery O2 Flow Rate FiO2 08/27/17 14:27 98.1 84 18 100/62 (75) [address] Brain W/O Iv Contrast(Rout) (08/27/17 ) Ibuprofen (Motrin) (08/27/17 16:45) Ed Discharge Order (08/27/17 16:36) [facility] Medical Decision Making Medical Screen Exam Complete: Yes Emergency Medical Condition: Yes Medical Record Reviewed: Yes Differential Diagnosis Closed head injury, scalp laceration, traumatic brain injury, subdural hematoma , headache Narrative Course 46-year-old male with closed head injury. CT scan ordered in triage and is unremarkable. Discussed CT findings with the patient. Neuro exam is unremarkable. Ibuprofen administered in the ER. Ibuprofen prescribed for home. Instructed patient to follow up with primary care provider. Patient verbalizes understanding and agreement with treatment plan. Patient is medically cleared and stable for discharge. Discussed reasons to return to the emergency department. Patient agrees with treatment plan. The patients vital signs are stable and the patient is stable for outpatient follow-up and treatment. Patient discharged home, stable and in no acute distress. Diagnosis Primary Impression: Closed head injury Qualified Codes: S09.90XA - Unspecified injury of head, initial encounter Referrals: Primary Care Physician Patient Instructions: General Instructions, Head Injury (ED) Additional Instructions: Ibuprofen or Tylenol as directed and as needed for pain and inflammation Ice to affected area to help decrease pain and inflammation Follow-up with primary care provider Return to the emergency department immediately with worsening of symptom, particularly with symptoms as discussed Med/Other Pt SpecificInfo: Prescription(s) given Scripts Ibuprofen (Ibuprofen) 800 Mg Tab 800 MG PO Q6HR Y for PAIN, #30 TAB 0 Refills Prov: Pam Pedroza 08/27/17 Disposition: 01 DISCHARGE HOME Condition: Stable Pam Pedroza Aug 27, 2017 16:36
[2017-08-27] MEDS ORDERED: IBUPROFEN 800 MG TAB PO ONE (16:45)
== END 2017-08-27 16:47 | disposition home or self-care (01) ==
LOC: NEPK 14:08
DX: S09.90XA Unspecified injury of head, initial encounter (principal); W22.8XXA Striking against or struck by other objects, initial encounter; Y99.0 Civilian activity done for income or pay; F31.9 Bipolar disorder, unspecified; B19.20 Unspecified viral hepatitis C without hepatic coma; J44.9 Chronic obstructive pulmonary disease, unspecified; K21.9 Gastro-esophageal reflux disease without esophagitis; F17.200 Nicotine dependence, unspecified, uncomplicated; F12.90 Cannabis use, unspecified, uncomplicated
CPT/HCPCS: 70450; 99283